=== PATIENT | male | born 1945 | race Caucasian/White ===

== ENCOUNTER 2019-08-01 11:19 | Observation (INO) | payer OTHER, SELFPAY ==
[2019-08-01] VITALS (53 sets, daily range): BP systolic 98–160; BP diastolic 58–94; PULSE 67–100; RESP 12–24; TEMP 35.4–36.7; O2SAT 90–98
--- NOTE | 2019-08-01 11:45 | DI.CT_ITS ---
EXAM: CT BRAIN NECK CTA CLINICAL HISTORY: R sided tongue/hand/foot numbness. TECHNIQUE: Imaging Protocol: Axial CT angiography was performed with multi-slice acquisition and mu lti-planar and/or 3D reconstructions. CONTRAST MATERIAL: Intravenous: Omnipaque 350 Contrast volume:85cc COMPARISON: CT CT HEAD WO from 08/01/2019 FINDINGS: CTA Brain W: Internal Carotid Arteries: Petrous: Normal. Cavernous: Normal. Cerebral: Normal. Middle Cerebral Arteries: Right: No aneurysm, occlusion or significant stenosis. Left: No aneurysm, occlusion or significant stenosis. Anterior Cerebral Arteries: Right: No aneurysm, occlusion or significant stenosis. Left: No aneurysm, occlusion or significant stenosis. Posterior cerebral Arteries: Right: No aneurysm, occlusion or significant stenosis. Left: No aneurysm, occlusion or significant stenosis. Vertebral Arteries: Right: No aneurysm, occlusion or significant stenosis. Left: No aneurysm, occlusion or significant stenosis. Basilar Artery: No aneurysm, occlusion or significant stenosis. CTA Neck W: Common Carotid: Right: Marked tortuosity proximally. No aneurysm, occlusion or significant stenosis. No significant plaque. Left: No aneurysm, occlusion or significant stenosis. External Carotid: Right: No aneurysm, occlusion or significant stenosis. Left: No aneurysm, occlusion or significant stenosis. Internal Carotid: Right: Marked tortuosity in the midportion. No aneurysm, occlusion or significant stenosis. No signi ficant plaque. Left: No aneurysm, occlusion or significant stenosis. Vertebral Artery: Right: No aneurysm, occlusion or significant stenosis. Left: No aneurysm, occlusion or significant stenosis. Lung Apices: Normal. Bones: Severe degenerative disc changes of the cervical spine. Scoliosis at the cervical thoracic ju nction. Soft Tissues: Normal. IMPRESSION: 1. Normal CTA examination of the [place]. 2. Normal CTA examination of the neck. RADIATION DOSE DELIVERED: 317.04mGy.cm Total DLP DATA REPOSITORY: All CT scans at this facility are submitted to the National Radiology Data Registry (NRDR) Dose Index Registry (DIR) with the [employer] (ACR). RADIATION OPTIMIZATION: All CT scans at this facility use at least one of these dose optimization te chniques: automated exposure control; mA and/or kV adjustment per patient size (includes targeted exa ms where dose is matched to clinical indication); or iterative reconstruction.
--- NOTE | 2019-08-01 11:45 | DI.RAD_ITS ---
EXAM: XR CHEST 2V PA LATERAL CLINICAL HISTORY: Possible cva, r/o widenend mediastinum, acute dz TECHNIQUE: 2D digital imaging was performed. COMPARISON: No exams were available for comparison FINDINGS: MEDIASTINUM: Normal. HEART: Normal. PULMONARY VASCULATURE: Normal. LUNGS: Clear. PLEURAL SPACE: No pleural effusion or pneumothorax. BONE:Degenerative changes in the thoracic spine. IMPRESSION: No acute pulmonary findings. DATA REPOSITORY: RADIATION DOSE DELIVERED:
--- NOTE | 2019-08-01 11:55 | W.ED.GENAD ---
Discharge Plan Disposition Patient Disposition: [facility] INPATIENT Condition: Improving Discharge Details Chief Complaint: CVA/TIA Clinical Impression: Left sided lacunar infarction, Acute cerebrovascular accident Admit Date/Time: 08/01/19 16:39 Admit Provider: Mohit Grant Attending Provider: Mohit Grant Primary Care Provider: Shala Ibanez ED Provider: Sidra Phan Discharge Data Discharge Date/Time-TO BE ENTERED AT DEPARTURE: 08/01/19 17:24 Medical Decision Making 1135 -- 74-year-old male with a history of daily alcohol drinker, CLL, hypertension, TIA presents for right-sided tongue, right hand and right toe tingling since 3 AM. BP mildly hypertensive on arrival. Afebrile. He appears nontoxic. No focal deficits on exam. EKG on arrival notes a rate of 94, sinus, PVCs, no acute ST ischemic changes. Differential diagnosis includes a TIA, acute CVA, electrolyte abnormality, arrhythmia. Will check screening labs, refer for stat CT head, CTA head and neck. Patient took a full dose aspirin this morning. Stat CT head and CTA head and neck negative. Labs reviewed and unremarkable. Chest x-ray negative. Patient states his symptoms are still present and the same since onset at 3 AM. Will refer for MRI MRA brain. Case d/w Dr. Carrington who agreed with plan for MRI/MRA brain and starting dual antiplatelet therapy if MRI/MRA positive or negative. Recommends 81 mg aspirin daily, 300 mg Plavix load today and 75 mg Plavix daily. Recommends admission for observation for TIA or CVA. 1530 -- MRI brain notes tiny area of restricted diffusion consistent with a lacunar infarct in the left basal ganglia. Patient states his symptoms are now improving. MRA brain within normal limits. Case discussed with hospitalist who accepts patient for admission. Hospitalist informed that patient is a daily drinker. Patient has not exhibited any signs of withdrawal while in the emergency department. Medical Records Medical records reviewed: Yes I reviewed the patient's medical records. Imaging Data Radiologic Study: Radiologist's impression: CT HEAD WO CLINICAL HISTORY: R tongue/hand/foot numbness, r/o acute cva. TECHNIQUE: Imaging Protocol: Axial computed tomography images with coronal and sagittal reformatted images were created and reviewed COMPARISON: CT HEAD WITHOUT CONTRAST from 11/05/2009 FINDINGS: Ventricles and Extra axial spaces: Normal in size and morphology for the patient's age. Hemorrhage: None. Cerebral parenchyma: Normal. Midline shift: None. Brainstem/Cerebellum: Normal. Calvarium: Normal. Visualized Paranasal sinuses/Mastoids: Clear. Soft Tissues: Unremarkable. IMPRESSION: No acute intracranial process. CT BRAIN NECK CTA CLINICAL HISTORY: R sided tongue/hand/foot numbness. TECHNIQUE: Imaging Protocol: Axial CT angiography was performed with multi-slice acquisition and multi-planar and/or 3D reconstructions. CONTRAST MATERIAL: Intravenous: Omnipaque 350 Contrast volume:85cc COMPARISON: CT CT HEAD WO from 08/01/2019 FINDINGS: CTA Brain W: Internal Carotid Arteries: Petrous: Normal. Cavernous: Normal. Cerebral: Normal. Middle Cerebral Arteries: Right: No aneurysm, occlusion or significant stenosis. Left: No aneurysm, occlusion or significant stenosis. Anterior Cerebral Arteries: Right: No aneurysm, occlusion or significant stenosis. Left: No aneurysm, occlusion or significant stenosis. Posterior cerebral Arteries: Right: No aneurysm, occlusion or significant stenosis. Left: No aneurysm, occlusion or significant stenosis. Vertebral Arteries: Right: No aneurysm, occlusion or significant stenosis. Left: No aneurysm, occlusion or significant stenosis. Basilar Artery: No aneurysm, occlusion or significant stenosis. CTA Neck W: Common Carotid: Right: Marked tortuosity proximally. No aneurysm, occlusion or significant stenosis. No significant plaque. Left: No aneurysm, occlusion or significant stenosis. External Carotid: Right: No aneurysm, occlusion or significant stenosis. Left: No aneurysm, occlusion or significant stenosis. Internal Carotid: Right: Marked tortuosity in the midportion. No aneurysm, occlusion or significant stenosis. No significant plaque. Left: No aneurysm, occlusion or significant stenosis. Vertebral Artery: Right: No aneurysm, occlusion or significant stenosis. Left: No aneurysm, occlusion or significant stenosis. Lung Apices: Normal. Bones: Severe degenerative disc changes of the cervical spine. Scoliosis at the cervical thoracic junction. Soft Tissues: Normal. IMPRESSION: 1. Normal CTA examination of the [place]. 2. Normal CTA examination of the neck. XR CHEST 2V PA LATERAL CLINICAL HISTORY: Possible cva, r/o widenend mediastinum, acute dz TECHNIQUE: 2D digital imaging was performed. COMPARISON: No exams were available for comparison FINDINGS: MEDIASTINUM: Normal. HEART: Normal. PULMONARY VASCULATURE: Normal. LUNGS: Clear. PLEURAL SPACE: No pleural effusion or pneumothorax. BONE:Degenerative changes in the thoracic spine. IMPRESSION: No acute pulmonary findings. MR BRAIN WO CLINICAL HISTORY: R tongue/hand/toe tingling, r/o cva. TECHNIQUE: Multiplanar multisequence MRI of the brain was performed. CONTRAST MATERIAL: Noncontrast COMPARISON: MR MRI - BRAIN WO CONTRAST from 01/29/2010 FINDINGS: VENTRICLES AND EXTRA AXIAL SPACES: Normal in size and morphology for the patient's age. HEMORRHAGE: None. CEREBRAL PARENCHYMA: There is a tiny area restricted diffusion in the left thalamus. No additional foci are seen. No space-occupying lesion identified. MIDLINE SHIFT: None. BRAINSTEM/CEREBELLUM: Normal. CALVARIUM: Normal. The vascular flow voids appear intact. VISUALIZED PARANASAL SINUSES/MASTOIDS: Clear. OTHER FINDINGS: None. IMPRESSION: Tiny area of restricted diffusion consistent with a lacunar infarct in the left basal ganglia. Otherwise unremarkable MRI of the brain. MR ANGIO BRAIN WO CLINICAL HISTORY: R TONGUE/HAND/TOE TINGLING, R/O ACUTE CVA. TECHNIQUE: Multiplanar multisequence MRA of the brain was performed. IV Contrast: Noncontrast. COMPARISON: None. FINDINGS: Carotid Arteries: No aneurysm, occlusion or significant stenosis. Anterior Cerebral Arteries: Right: No aneurysm, occlusion or significant stenosis. Left: No aneurysm, occlusion or significant stenosis. Middle Cerebral Arteries: Right: No aneurysm, occlusion or significant stenosis. Left: No aneurysm, occlusion or significant stenosis. Posterior Cerebral Arteries: Right: No aneurysm, occlusion or significant stenosis. Left: No aneurysm, occlusion or significant stenosis. Vertebral Arteries: Right: No aneurysm, occlusion or significant stenosis. Left: No aneurysm, occlusion or significant stenosis. Basilar Artery: No aneurysm, occlusion or significant stenosis. IMPRESSION: Normal MRA examination of the [place]. Lab Data Lab results reviewed: Yes I reviewed the patient's lab results. ECG Data Attestation: I personally reviewed and interpreted this ECG (s) as follows: Interpretation: Rate of 94, sinus, frequent PVCs. No acute ST elevation or depression. [place] 158. QTc 445. QRS 108. HPI General Mode of arrival: ambulatory. Date/Time Provider Initiated Documentation: 08/01/19 11:27. Limitations to Documentation: no limitations. Information obtained by: patient. HPI Narrative: Patient is a 74-year-old male with a history of hypertension, CLL and TIA presents for right-sided tongue, right hand and right third through fifth toes tingling since 3 AM. Patient states his symptoms have not subsided since onset. He states he thinks he may have blurry vision but is unclear if this is any worse than usual. He denies any headache, dizziness, chest pain, shortness of breath, extremity weakness. He states he had a TIA in 2009. He also states his CLL was diagnosed in 2013 and has been minor and not been treated with anything. He states he took a 325 mg aspirin this morning. Related Data Home Medications Medication Instructions Recorded Confirmed omeprazole magnesium [Prilosec OTC] 20 mg PO DAILY 09/27/13 08/04/19 aspirin 81 mg PO DAILY #0 tab 08/02/19 08/04/19 atorvastatin 20 mg PO QHS #30 tab 08/02/19 08/04/19 clopidogrel [Plavix] 75 mg PO DAILY #30 tab 08/02/19 08/04/19 cephalexin [Keflex] 500 mg PO QID #27 cap 08/04/19 Previous Rx's Medication Instructions Recorded aspirin 81 mg PO DAILY #0 tab 08/02/19 atorvastatin 20 mg PO QHS #30 tab 08/02/19 clopidogrel [Plavix] 75 mg PO DAILY #30 tab 08/02/19 cephalexin [Keflex] 500 mg PO QID #27 cap 08/04/19 Allergies Allergy/AdvReac Type Severity Reaction Status Date / Time No Known Allergies Allergy Unverified 08/04/19 14:31 General Stated Complaint: CVA/TIA ANAM: 2 Review of Systems All systems reviewed & are unremarkable except as noted in HPI and below Constitutional Constitutional: Reports as per HPI, Denies chills and Denies fever(s) Eyes Eyes: Denies blurry vision ENT Ears, Nose, Mouth, and Throat: Denies dizziness, Denies sore throat and Denies throat swelling Cardiovascular Cardiovascular: Denies chest pain and Denies dyspnea Respiratory Respiratory: Denies cough and Denies dyspnea Gastrointestinal Gastrointestinal: Denies abdominal pain, Denies diarrhea and Denies vomiting Genitourinary Genitourinary: Denies hematuria and Denies dysuria Musculoskeletal Musculoskeletal: Denies back pain and Denies numbness Integumentary/Breasts Skin/Breast: Denies lesions and Denies rash Neurologic Neurologic: Denies dizziness, Denies localized weakness and Denies numbness Allergic/Immunologic Allergic/Immunologic: Denies throat swelling [facility] Medical History CLL (chronic lymphocytic leukemia) (Acute) GERD (gastroesophageal reflux disease) (Chronic) Gout HTN (hypertension) (Chronic) Migraine headache with aura (Acute) Ocular migraine (Acute) TIA (transient ischemic attack) Surgical History History of nasal surgery (Acute) Tonsillectomy Family History Maternal Grandmother Stroke Social History Smoking/Tobacco Use Status: Never Alcohol Intake: current Alcohol Intake frequency: 0-2 drinks per day Alcohol type: beer Drug use: Never Household members: none Do you feel safe at home: Yes Do you feel safe in your relationship?: Yes Exam Const General: cooperative, healthy appearing and no acute distress HENMA Head: normal to inspection Face and sinus: normal facial exam Eyes General: appearance normal, both eyes and all related structures Pupils: PERRL EOM: EOM intact bilaterally Neck Neck: normal visual inspection and No submandibular swelling Lymphatic: no lymphadenopathy noted Chest Chest: normal inspection of the chest and no tenderness Resp Effort & Inspection: normal respiratory effort and able to speak in complete sentences Auscultation: clear to auscultation bilaterally Cardio Rate: regular rate Rhythm: regular rhythm GI Inspection: normal to inspection Palpation: soft, not firm, not rigid and nontender Auscultation: normal bowel sounds Male General Exam: Yes normal external exam Back/Spine/Pelvis Thoracic/Lumbar Spine: thoracic and lumbar spine normal to inspection Skin General skin exam: no rashes or lesions noted Neuro General: patient alert, patient awake, patient oriented x3 and CN's II-XI intact bilaterally Cognition: normal cognition Speech: speech normal Motor: muscle tone normal throughout and strength 5/5 throughout Sensory Exam: no sensory deficits noted Extrem General: normal to inspection, full ROM, capillary refill normal, no calf tenderness bilaterally and no edema Psych Appearance: grossly normal Mental Status: mental status grossly normal Speech and Movement: speech and movement normal Affect: normal affect Course Vital Signs Vital signs: Vital Signs Temperature 98.1 F 08/01/19 11:24 Pulse 100 H 08/01/19 11:24 Respiratory Rate 16 08/01/19 11:24 Blood Pressure 158/89 H 08/01/19 11:24 Pulse Oximetry 94 L 08/01/19 11:24 Temperature 98.1 F 08/01/19 11:24 Temperature Source Skin 08/01/19 11:24 Pulse 100 H 08/01/19 11:24 Respiratory Rate 16 08/01/19 11:29 Respiratory Effort Non-Labored 08/01/19 11:29 Respiratory Depth Normal 08/01/19 11:29 Respiratory Pattern Normal 08/01/19 11:29 Blood Pressure 158/89 H 08/01/19 11:24 Blood Pressure Position Sitting 08/01/19 11:24 Pulse Oximetry 94 L 08/01/19 11:24 Oxygen Delivery Method Room Air 08/01/19 11:24 Oxygen Flow Rate 0 08/01/19 11:24 Pain Level 0 08/01/19 11:24
--- NOTE | 2019-08-01 12:00 | DI.CT_ITS ---
EXAM: CT HEAD WO CLINICAL HISTORY: R tongue/hand/foot numbness, r/o acute cva. TECHNIQUE: Imaging Protocol: Axial computed tomography images with coronal and sagittal reformatted images were created and reviewed COMPARISON: CT HEAD WITHOUT CONTRAST from 11/05/2009 FINDINGS: Ventricles and Extra axial spaces: Normal in size and morphology for the patient's age. Hemorrhage: None. Cerebral parenchyma: Normal. Midline shift: None. Brainstem/Cerebellum: Normal. Calvarium: Normal. Visualized Paranasal sinuses/Mastoids: Clear. Soft Tissues: Unremarkable. IMPRESSION: No acute intracranial process. RADIATION DOSE DELIVERED: 810.85mGy.cm Total DLP DATA REPOSITORY: All CT scans at this facility are submitted to the National Radiology Data Registry (NRDR) Dose Index Registry (DIR) with the [employer] [employer] (ACR). RADIATION OPTIMIZATION: All CT scans at this facility use at least one of these dose optimization te chniques: automated exposure control; mA and/or kV adjustment per patient size (includes targeted exa ms where dose is matched to clinical indication); or iterative reconstruction.
[2019-08-01 12:07] LABS: Abs Immature Grans 0.01 k/cumm (0.0-0.09); Absolute Basophil Count 0.01 k/cumm (0.0-0.2); Absolute Eosinophil Count 0.18 k/cumm (0.0-0.7); Absolute Lymphocyte Count 4.39 k/cumm (1.2-3.4); Absolute Monocyte Count 0.53 k/cumm (0.11-0.7); Absolute Neutrophil Count 2.12 k/cumm (1.2-6.7); Basophils % 0.1; Eosinophils % 2.5; HCT 45.4 % (40.0-50.0); HGB 16.1 g/dL (13.5-17.5); Immature Grans % 0.1 %; Lymphocytes % 60.6; Mean Corp. HGB Concentration 35.5 g/dL (32.0-36.0); Mean Corpuscular Hemoglobin 33.2 pg (27.0-33.0); Mean Corpuscular Volume 93.6 fL (80-95); Mean Platelet Volume 10.6 fL (8.0-11.0); Monocytes % 7.3; Neutrophils % 29.4; Platelet Count 244 x1000/uL (130-400); RBC 4.85 m/cumm (4.50-6.00); RBC Distribution Width 13.3 % (11.8-14.1); White Blood Cell Count 7.24 k/cumm (4.4-10.8)
[2019-08-01 12:21] LABS: ALT 15 U/L (16-63); AST 26 U/L (15-37); Albumin 3.9 g/dL (3.4-5.0); Alkaline Phosphatase 65 U/L (46-116); Anion Gap 11.5 mmol/L (3-11); BUN 17 mg/dL (7-18); Bilirubin, Total 0.6 mg/dL (0.2-1.0); CO2 24.5 mmol/L (21.0-32.0); CREATININE 1.15 mg/dL (0.70-1.30); Chloride 104 mmol/L (98-107); Glucose 108 mg/dL (74-106); Magnesium 1.8 mg/dL (1.8-2.4); Potassium 3.8 mmol/L (3.5-5.1); Sodium 140 mmol/L (136-145); Total Protein 6.9 g/dL (6.4-8.2)
[2019-08-01 12:22] LABS: Troponin I < 0.05 ng/mL (<0.06)
[2019-08-01 12:24] LABS: INR 1.1 (0.9-1.1); PTT Activated 24.1 sec (21.0-31.4)
[2019-08-01] MEDS: Omnipaque 350 MG/ML 100 ML BTL IJ (12:43)
[2019-08-01] MEDS: Normal Saline - Diluent 50 ML VIAL IV (12:45)
--- NOTE | 2019-08-01 14:00 | DI.MRI_ITS ---
EXAM: MR BRAIN WO CLINICAL HISTORY: R tongue/hand/toe tingling, r/o cva. TECHNIQUE: Multiplanar multisequence MRI of the brain was performed. CONTRAST MATERIAL: Noncontrast COMPARISON: MR MRI - BRAIN WO CONTRAST from 01/29/2010 FINDINGS: VENTRICLES AND EXTRA AXIAL SPACES: Normal in size and morphology for the patient's age. HEMORRHAGE: None. CEREBRAL PARENCHYMA: There is a tiny area restricted diffusion in the left thalamus. No additional f oci are seen. No space-occupying lesion identified. MIDLINE SHIFT: None. BRAINSTEM/CEREBELLUM: Normal. CALVARIUM: Normal. The vascular flow voids appear intact. VISUALIZED PARANASAL SINUSES/MASTOIDS: Clear. OTHER FINDINGS: None. IMPRESSION: Tiny area of restricted diffusion consistent with a lacunar infarct in the left basal ganglia. Other rodriguez unremarkable MRI of the brain. DATA REPOSITORY:
--- NOTE | 2019-08-01 14:00 | DI.MRI_ITS ---
EXAM: MR ANGIO BRAIN WO CLINICAL HISTORY: R TONGUE/HAND/TOE TINGLING, R/O ACUTE CVA. TECHNIQUE: Multiplanar multisequence MRA of the brain was performed. IV Contrast: Noncontrast. COMPARISON: None. FINDINGS: Carotid Arteries: No aneurysm, occlusion or significant stenosis. Anterior Cerebral Arteries: Right: No aneurysm, occlusion or significant stenosis. Left: No aneurysm, occlusion or significant stenosis. Middle Cerebral Arteries: Right: No aneurysm, occlusion or significant stenosis. Left: No aneurysm, occlusion or significant stenosis. Posterior Cerebral Arteries: Right: No aneurysm, occlusion or significant stenosis. Left: No aneurysm, occlusion or significant stenosis. Vertebral Arteries: Right: No aneurysm, occlusion or significant stenosis. Left: No aneurysm, occlusion or significant stenosis. Basilar Artery: No aneurysm, occlusion or significant stenosis. IMPRESSION: Normal MRA examination of the [place]. DATA REPOSITORY:
[2019-08-01] MEDS: LORazepam 1 MG TAB PO (14:22)
[2019-08-01] MEDS: LORazepam 2 MG/ML VIAL 0.5 MG IVP ×2 (14:55)
[2019-08-01] MEDS: Clopidogrel 300 MG TAB PO (16:12)
--- NOTE | 2019-08-01 17:57 | W.PM.HP.N ---
Date of service: 08/01/19 Time of Service: 17:57 Assessment and Plan Assessment and plan (1) Left sided lacunar infarction: Status: Acute Assessment and plan: Begin high-dose statin continue dual antiplatelet therapy. Will obtain transthoracic echocardiogram in the morning to evaluate for atrial thrombus or valvular heart disease or evidence of cardiomyopathy. Consult with neurology in the morning. Consult with physical therapy and speech therapy in the morning. Will monitor overnight on telemetry and arrange outpatient prolonged cardiac monitoring to look for occult atrial fibrillation. Will check a lipid profile and glycohemoglobin A1c and thyroid function tests in the morning. If he has no worsening of his neurologic symptoms then the plan will be to discharge home in the morning. For now would not treat his blood pressure but let this right overnight in the acute setting of a recent CVA however given his history of labile blood pressures the goal for him should be to achieve normotensive pressures over the next couple weeks. (2) Elevated blood pressure reading: Status: Acute Assessment and plan: As above will allow his blood pressure to passively remain elevated as long as his systolic blood pressure remains under 200 and diastolic remains below 110. Otherwise he can start low-dose antihypertensive treatment as an outpatient with a goal of systolic blood pressure less than 140 and diastolic blood pressure under 90 (3) HTN (hypertension): Status: Chronic Assessment and plan: As above Qualifiers: Hypertension type: essential hypertension Qualified Code(s): I10 - Essential (primary) hypertension History of Present Illness History of Present Illness Chief Complaint: Right-sided numbness Narrative: .74-year-old right-handed male non-smoker with a past medical history of GERD for which she takes omeprazole presented emergency department at 11:24 AM today with complaints of acute right hand and right foot tingling along with tingling on the right side of his tongue. Onset of his symptoms began around 3 AM when he noticed this while staying up late at night working on his computer and when to close up his computer and noticed that his right hand felt odd, tingling and he was a little bit clumsy with his right hand. He also noticed when he got up from his desk walking that his right foot felt tingling and there was some tingling on the right side of his tongue. Patient proceeded to go to bed and woke up around 10 AM this morning and had residual symptoms of right tongue numbness and right hand numbness although he said the right foot had improved. He denies any acute visual loss or difficulty swallowing and did not notice any difficulty ambulating. He had no loss of balance and denies any chest pain or syncope. He states that he may have had some palpitations this morning but associates this due to anxiety over possibly having a stroke. When he woke up and continued to have the symptoms he took an aspirin 325 mg and proceeded to dress and shower and come to the emergency department. Patient denies a past history of diabetes mellitus, stroke, [place], arrhythmias, hyperlipidemia but does acknowledge she has had some labile blood pressures in the past particularly noted when he seen the dentist. He is not currently on any blood pressure lowering medications. He does have a history of GERD for which she takes omeprazole. He has not recently followed up with his PCP as his doctor at [facility] recently retired. After reviewing his chart I saw that he has a history of a TIA. I asked the patient the circumstances that sounds like they were very similar in which she had right hand numbness and tingling which was transient and lasted less than an hour. This occurred in October 2018. He subsequent had another episode in November 2017. He said he underwent a series of test to work-up for stroke and was advised to stay on a aspirin 81 mg daily. He continued on this dose of aspirin for a number of years until he read reports that even low-dose aspirin can lead to GI bleeding and he took himself off aspirin. Work-up in the emergency department included routine labs and EKG as well as a CT scan of his head and a subsequent CTA of his head and neck and subsequent MRI of the brain and MRA. CT scan of the head without contrast was unremarkable. CTA of the head and cervical vessels showed patent [place] and patent cervical vessels with no significant stenoses and no aneurysm. MRA of the brain showed patent [place]. MRI of the brain showed a small diffusion defect in the left thalamus. Dr. Sidra Phan, emergency room physician, spoke with Dr. Roxi Carrington, neurologist who advised dual anti-platelet with aspirin and Plavix. Patient was started on Plavix 300 mg and will be continued on Plavix 75 mg daily and aspirin 81 mg daily. High-dose statin will be added to his regimen. We will monitor his rhythm overnight looking for any paroxysmal atrial fibrillation. Upon discharge from the hospital he will have a cardiac event recorder to look for any atrial dysrhythmias. I will get a glycohemoglobin A1c and lipid profile in the morning along with a TSH with reflex free T4. We will consult with Dr. Carrington in the morning as well as physical therapy and speech therapy. Review of Systems Constitutional Constitutional: Reports as per HPI, Denies chills, Denies fever(s), Denies frequent falls and Denies headache(s) Eyes Eyes: Denies blurry vision, Denies change in vision, Denies diplopia and Denies loss of peripheral vision ENT Ears, Nose, Mouth, and Throat: Reports as per HPI, Denies headache(s) and Denies disequilibrium Cardiovascular Cardiovascular: Denies chest pain, Denies syncope, Denies rapid heart rate, Denies irregular heart rhythm, Denies dyspnea and Denies dyspnea on exertion Respiratory Respiratory: Reports system reviewed and no additional complaints, except as documented, Denies dyspnea and Denies dyspnea on exertion Gastrointestinal Gastrointestinal: Reports system reviewed and no additional complaints, except as documented Musculoskeletal Musculoskeletal: Reports system reviewed and no additional complaints, except as documented and Reports numbness Neurologic Neurologic: Reports as per HPI, Denies abnormal movements, Denies abnormal speech, Denies syncope, Denies frequent falls, Denies headache(s), Denies lack of coordination, Denies localized weakness, Reports numbness, Denies other visual disturbances, Reports paresthesias and Denies disequilibrium Endocrine Endocrine: Reports system reviewed and no additional complaints, except as documented Hematologic/Lymphatic Hematologic/Lymphatic: Reports system reviewed and no additional complaints, except as documented Allergic/Immunologic Allergic/Immunologic: Reports system reviewed and no additional complaints, except as documented [facility] Medical History (Updated 08/01/19 @ 19:10 by Mohit Grant) CLL (chronic lymphocytic leukemia) (Acute) Gout HTN (hypertension) (Chronic) TIA (transient ischemic attack) Surgical History (Updated 08/01/19 @ 18:57 by Mohit Grant) History of nasal surgery (Acute) Tonsillectomy Social History Smoking/Tobacco Use Status: Never Drug use: Never Meds Home Medications and Allergies Home Medications Medication Instructions Recorded Confirmed Type omeprazole magnesium [Prilosec OTC] 20 mg PO DAILY 09/27/13 08/01/19 History Allergies Allergy/AdvReac Type Severity Reaction Status Date / Time No Known Allergies Allergy Unverified 08/01/19 11:28 Exam Narrative Exam Narrative: Older male lying in bed in semi-ivy position no acute distress. He is alert and oriented person place time circumstance. Speech is clear and coherent no dysarthric speech. HEENT is remarkable for slight loss of tone in the right nasolabial fold but otherwise fairly symmetrical smile. Extraocular motions intact. Gross visual hill intact. Oropharynx noninjected no exudate normal tongue movement. Normal palate movement. Normal phonation. Neck is supple nontender no JVD normal carotid pulses no bruits. Lungs are clear to auscultation. Heart regular rate and rhythm without murmur rub or gallop. Abdomen soft and nontender normal active bowel sounds no palpable masses or bruits. Lower extremities without peripheral cyanosis or edema. Neurologic exam: Slight loss of right nasolabial fold tone but otherwise symmetrical facial mimetic muscle movement. Flextra motions intact. Normal strength in the muscles of his neck and shoulders. Normal hand corporate travel coordinator strength normal arm strength and normal hip flexion extension as well as normal dorsiflexion and plantar flexion at the ankles. Sensation slight decreased to light touch over the right hand normal sensation of the right forearm and upper arm and right leg. Results Labs Result diagrams: 08/01/19 11:36 08/01/19 11:36 Labs: Laboratory Results - last 24 hr 08/01/19 08/01/19 08/01/19 11:36 11:36 11:36 WBC 7.24 RBC 4.85 Hgb 16.1 Hct 45.4 MCV 93.6 MCH 33.2 H MCHC 35.5 RDW 13.3 Plt Count 244 MPV 10.6 Immature Gran % 0.1 Neutrophils % 29.4 Lymphocytes % 60.6 Monocytes % 7.3 Eosinophils % 2.5 Basophils % 0.1 Absolute Neutrophils 2.12 Absolute Lymphocytes 4.39 H Absolute Monocytes 0.53 Absolute Eosinophils 0.18 Absolute Basophils 0.01 PT 11.0 INR 1.1 APTT 24.1 Sodium 140 Potassium 3.8 Chloride 104 Carbon Dioxide 24.5 Anion Gap 11.5 H BUN 17 Creatinine 1.15 Estimated GFR/1.73 m2 >= 60.00 Glucose 108 H Calcium 9.0 Magnesium 1.8 Total Bilirubin 0.6 AST 26 ALT 15 L Alkaline Phosphatase 65 Troponin I < 0.05 Total Protein 6.9 Albumin 3.9 Last Vital Signs Temp 36.7 C 06/17/20 17:41 Pulse 78 08/01/19 17:41 Resp 20 08/01/19 17:41 BP 160/83 H 08/01/19 17:41 Pulse Ox 98 08/01/19 17:41 COVID-19 Screening In the past 14 days, have you traveled outside of [place] or [place]?: NO Had IN PERSON contact w/suspected or confirmed C-19 person: No
[2019-08-01] MEDS: Folic Acid 1 MG TAB PO (20:38)
[2019-08-01] MEDS: Multivitamin TAB 1 TAB PO (20:38)
[2019-08-01] MEDS: Enoxaparin 40 MG/0.4 ML SYR SC (20:38)
[2019-08-01] MEDS: Thiamine 100 MG TAB PO (20:38)
[2019-08-01] MEDS: Atorvastatin 40 MG TAB 80 MG PO (20:39)
[2019-08-02 00:37] VITALS: BP 125/72; PULSE 68; RESP 18; TEMP 36.9; O2SAT 95
[2019-08-02 02:30] VITALS: BP 125/70; PULSE 69; RESP 18; TEMP 36.7; O2SAT 96
[2019-08-02 06:38] VITALS: BP 154/81; PULSE 62; RESP 17; TEMP 36.6; O2SAT 96
[2019-08-02 06:40] LABS: COVID-19 RT-PCR UVMMC Result Negative (Negative)
[2019-08-02 06:53] LABS: Hemoglobin A1C 5.6 % (3.8-5.6)
[2019-08-02 06:56] LABS: Glucose 110 mg/dL (74-106)
--- NOTE | 2019-08-02 07:00 | DI.US_ITS ---
APPROVED REPORT EXAM: Comprehensive 2D, Doppler, and color-flow Echocardiogram Patient Location: In-Patient Room/Bed: [facility] Teacher: Laney Ware RDCS (AE) Indications: CVA Other Information Study Quality: Adequate Conclusion Left Ventricle : The left ventricle is normal size. There is normal left ventricular wall thickness. There is normal LV segmental wall motion. Transmitral Doppler flow pattern suggests impaired LV relax ation. LVEF is 49%. The left ventricular systolic function is low normal. Right Ventricle : Right ventricle is not well visualized. Right ventricular systolic function could n ot be assessed. The RVSP is 25.3 mmHg. Atria : The left atrium size is normal. The right atrium size is normal. Valves, there are no hemodynamically significant valvular lesions. Great Vessels : The aortic root is normal in size. The ascending aorta is mildly dilated. IVC is norm al in size and collapses >50% with inspiration. Please see remainder of study for further details. There are no echocardiographic images available for comparison. Wall motion Left Ventricle The left ventricle is normal size. The left ventricular systolic function is low normal. There is nor mal left ventricular wall thickness. There is normal LV segmental wall motion. Transmitral Doppler fl ow pattern suggests impaired LV relaxation. There is no ventricular septal defect visualized. LVEF is 49%. Right Ventricle Right ventricle is not well visualized. Right ventricular systolic function could not be assessed. Th e RVSP is 25.3 mmHg. Atria The left atrium size is normal. The right atrium size is normal. The interatrial septum is intact wit h no evidence for an atrial septal defect. Aortic Valve The Aortic valve is sclerotic. Aortic valve is trileaflet. There is no aortic valvular stenosis. Trac e aortic regurgitation. Mitral Valve Mild mitral annular calcification. No evidence of mitral valve stenosis. Trace mitral regurgitation. Tricuspid Valve The tricuspid valve is normal in structure. There is no tricuspid valve stenosis. Trace tricuspid reg urgitation. Pulmonic Valve The pulmonary valve is normal in structure. There is no pulmonic valvular stenosis. Mild pulmonic reg urgitation. Great Vessels The aortic root is normal in size. The ascending aorta is mildly dilated. IVC is normal in size and c ollapses >50% with inspiration. Pericardium There is no pericardial effusion. 2D Dimensions IVSD d PLAX 1.13 cm M: 0.6-1.2 LV Vol A2C d MOD 107.8 mL LVPW d PLAX 1.12 cm M: 0.6 - 1.2 LV Vol A4C d MOD 119.5 mL LVID d PLAX 4.60 cm M: 4.2 - 5.8 LA vol/ BSA A2C s A-L 22.2 mL/m2 LVDs 3.40 cm M: 2.5 - 4.0 LA vol/ BSA A4C s A-L 29.1 mL/m2 Ao Root d 3.45 cm M: 3.1 - 3.7 LA Vol/ BSA Biplane s A-L 26.7 mL/m2 RA Area A4C 13.39 cm2 LA Area A4C s MOD 20.21 cm2 RA Vol/ BSA A4C s A-L 16.4 mL/m2 LA Area A2C s MOD 16.80 cm2 Ao Asc Diam d 3.60 cm M: 2.6 - 3.4 LV EF A4C MOD 49.2 % LV EF Teichholz 50.8 % LV EF A2C MOD 49.7 % LVEF (Major's) 49.42 % M: 52 - 72 LV EF Biplane MOD 49.4 % LV Volume 86.76 mL M: 62 - 150 SV 57.80 mL LV Volume Index 42.11 mL/m2 M: 34 - 74 SV Index 27.95 mL/m2 LV Vol Biplane MOD 117.0 mL FS 25.80 % M-Mode TAPSE 2.21 cm (M/F) >1.7 LV Diastology MV E' medial 0.069 (>0.07 m/s) MV E Vmax 0.29 (0.4-1.3 m/s) LV E/e MED 4.10 (<14) MV E' lateral 0.079 (>0.1 m/s) LV E/e LAT 3.60 (<14) MV E/E' medial 4.14 MV E/E' lateral 3.63 Aortic Valve LVOT Area 3.51 cm2 AoV Area Vmax 2.64 cm2 LVOT Vmax 1.11 m/s AoV Area/ BSA (Vmax) 1.28 cm2/m2 LVOT Mean Dillon. 0.72 m/s AMANDA Mean Dillon. 2.59 cm2 LVOT Peak Grad 4.9 mmHg AMANDA Mean Dillon. Index 1.25 cm2/m2 LVOT Mean Grad 2.4 mmHg LVOT VTI 0.211 m LVOT Diam s 2.10 cm AoV Vmax 1.47 m/s Velocity Ratio 0.75 AoV Mean Dillon. 0.98 m/s AoV Peak Grad 8.7 mmHg LVOT SV 74.09 mL AoV Mean Grad 4.4 mmHg AoV VTI 0.223 m AoV Area VTI 3.32 cm2 AoV Area/ BSA (VTI) 1.61 cm/m2 Mitral Valve MV VTI 0.140 m MV Area VTI 5.29 (4.0-6.0 cm2) Pulmonary Valve PV Vmax 1.37 (0.5-1.5 m/s) RVOT Peak Gr. 1.62 mmHg PV Peak Grad 7.5 mmHg RVOT Mean Gr. 0.85 mmHg PV Mean Grad 3.3 mmHg RVOT VTI 0.120 m PV VTI 0.206 m RVOT Vmax 0.64 m/s Tricuspid Valve TR Peak Grad 22.2 mmHg TR Vmax 2.36 m/s RA Pressure 3.00 mmHg RVSP (TR) 25.3 mmHg
[2019-08-02 07:10] LABS: Calculated LDL 96 mg/dL (<100); Cholesterol 167 mg/dL (<200); HDL Cholesterol 44 mg/dL (40-60); TSH (W/Ref FT4) 2.13 uIU/mL (0.36-3.74); Triglyceride 139 mg/dL (<150)
[2019-08-02 07:15] VITALS: BP 132/84; PULSE 70; RESP 14; TEMP 36.3; O2SAT 98
[2019-08-02 08:29] LABS: *AMPHETAMINES SCREEN URINE Negative (Negative); *BARBITURATES SCREEN URINE Negative (Negative); *BENZODIAZEPINES SCREEN URINE Negative (Negative); Cannabinoids THC Negative (Negative); Cocaine Screen,Urine Negative (Negative); METHADONE URINE SCREEN Negative (Negative); OPIATES URINE SCREEN Negative (Negative)
[2019-08-02 08:33] LABS: Tricyclic Antidepressants Negative (Negative)
[2019-08-02] MEDS: Aspirin E.C. 81 MG TABEC PO (10:13)
[2019-08-02] MEDS: Docusate Sodium 100 MG CAP PO (10:13)
[2019-08-02] MEDS: Omeprazole 20 MG CAPCR PO (10:13)
[2019-08-02] MEDS: Folic Acid 1 MG TAB PO (10:14)
[2019-08-02] MEDS: Multivitamin TAB 1 TAB PO (10:14)
[2019-08-02] MEDS: Clopidogrel 75 MG TAB PO (10:14)
[2019-08-02] MEDS: Thiamine 100 MG TAB PO (10:14)
--- NOTE | 2019-08-02 10:27 | PDOC.CMIN ---
- If Service Date Differs Date of service: 08/02/19 Time of Service: 16:36 Care Management Initial Assess REASON FOR HOSPITALIZATION:: Acute Lacunar Infarct PAST MEDICAL HISTORY/PAST SURGICAL HISTORY:: CLL, Gout, HTN, TIA, Hx of nasal surgery, tonsillectomy PREVIOUS FUNCTIONAL STATUS/SOCIAL/FAMILY SUPPORTS:: Misha resides in [facility], he is single and is employed at [employer]. He is independent at baseline in the community. ADVANCE DIRECTIVES:: None on file at [facility]. Has patient been provided with info about the portal/API?: Yes Did the patient sign up for the portal?: Yes (Previously) CODE STATUS:: Full Code INSURANCE COVERAGE / FINANCIAL ISSUES:: [facility] CURRENT HOME/COMMUNITY SERVICES/EQUIPMENT:: No current services or equipment. PRIMARY CARE PHYSICIAN:: Shala Ibanez POTENTIAL DISCHARGE NEEDS:: alarm security or surveillance monitor, neurology consult, Echo, new medications, follow up appointments with PCP. PATIENT/FAMILY EDUCATION NEEDS:: Review discharge instructions, discuss Ask Me Three. ANTICIPATED BARRIERS TO DISCHARGE:: None identified at this time. TRANSPORTATION:: Via private vehicle with a friend. PLAN:: Misha will return home when ready per MD; likely today-pending neurology consult and additional imaging. He will have a new alarm security or surveillance monitor, anti-coagulant medications and follow up appointments.
[2019-08-02 10:30] VITALS: BP 167/99; PULSE 71; RESP 13; TEMP 36.7; O2SAT 98
--- NOTE | 2019-08-02 11:00 | W.SPEECHNOTE ---
Date of service: 08/02/19 Time of Service: 11:00 Speech Therapy Visit Note Note: Swallow screen conducted with pt today. He denies any change in swallowing since admission for CVA. Pt was able to communicate clearly and effectively. Pt was alert, oriented, able to answer questions and provide historical information appropriately. He noted minor changes to his speech when first noting symptoms, suspected to be due to lingual numbness, which has reportedly resolved. Pt has managed a regular diet during his stay and reports no difficulty with solid textures or liquids, including eating/drinking sandwiches, muffins, oatmeal, water, juice, etc. Lingual strength and ROM was informally assessed today, all of which appeared WFL. Oral hygiene was adequate. Pt was observed while taking open cups sips, straw sips, and consecutive sips of water. He also managed crackers. No overt s/s of aspiration present. Pt exhibited functional mastication. No pocketing seen. Pt exhibited a shallow throat clear on occasion, however, this is not suspected to be related to his swallowing as there were no other accompanying symptoms of aspiration. Pt has hx of GERD and is taking medications to manage. He reports not taking daily, reducing to approximately every other day and then as needed if eating spicy foods. Pt denies pharyngeal and esophageal globus sensation. Pt reports having no difficulty taking his medications, managing well while here at the hospital. Pt was educated regarding communicating with his medical providers if further concerns or difficulties arise, for which an outpatient assessment could be considered.
--- NOTE | 2019-08-02 11:42 | PT.INIE ---
Date of service: 08/02/19 Time of Service: 11:42 PT Notes Visit Reasons: ACUTE LACUNAR INFARCT Physical Therapy Inpatient Initial Evaluation Date: 08/02/2019 Referring Doctor: Mohit Michael MD PT Orders: PT CONSULT: Safety consult for DC. Status post left basal ganglia CVA Precautions: Fall. Standard. Activity as tolerated. Patient Profile/Admitting Diagnosis: Misha is a 74-year-old male who presented to the ED on 08/03/2019 with a chief complaint of right-sided tongue, hand, and chill tingling and numbness that started at 3 AM earlier today. Patient is diagnosed with left-sided Lackner infarction as well as hypertension with referral for skilled physical therapy services for safety recommendations for discharge planning. PMHX: Medical History CLL (chronic lymphocytic leukemia) (Acute) GERD (gastroesophageal reflux disease) (Chronic) Gout HTN (hypertension) (Chronic) Migraine headache with aura (Acute) Ocular migraine (Acute) TIA (transient ischemic attack) Surgical History History of nasal surgery (Acute) Tonsillectomy Social History/Home Situation: Independent with all aspects of ADLs without the need for an assistive ambulatory device nor adaptive equipment. Equipment Owned/DME: None Subjective: Patient states that the tingling and the numbness is now concentrated on the palmar and the dorsal aspect of his hand and the dorsum of his foot on the right side. He states that he feels a lot better compared to when he first came in. Denies chest pain, headache, and dizziness throughout PT consult. Objective: General Observation: No lines seen. No facial droop seen. No postural deformity seen Mental Status: Alert and oriented x4 Pain: None reported ROM: Right Upper Extremity: Shoulder Flexion WFL. Shoulder abduction WFL. Elbow flexion WFL. Wrist flexion WFL. Opening and closing of hand WFL. Left Upper Extremity: Shoulder Flexion WFL. Shoulder abduction WFL. Elbow flexion WFL. Wrist flexion WFL. Opening and closing of hand WFL. Right Lower Extremity: Hip flexion WFL. Hip abduction WFL. Knee flexion WFL. Ankle dorsiflexion WFL. Ankle plantarflexion WFL. Left Lower Extremity: Hip flexion WFL. Hip abduction WFL. Knee flexion WFL. Ankle dorsiflexion WFL. Ankle plantarflexion WFL. Strength: Right Upper Extremity: Shoulder flexors 5/5. Shoulder abductors 5/5. Elbow flexors 5/5. Elbow extensors 5/5. Metal Window Frame Maker strong. Left Upper Extremity: Shoulder flexors 5/5. Shoulder abductors 5/5. Elbow flexors 5/5. Elbow extensors 5/5. Metal Window Frame Maker strong. Right Lower Extremity: Hip flexors 5/5. Hip abductors 5/5. Knee flexors 5/5. Knee extensors 5/5. Ankle dorsiflexors 5/5. Ankle plantarflexors 5/5. Left Lower Extremity:Hip flexors 5/5. Hip abductors 5/5. Knee flexors 5/5. Knee extensors 5/5. Ankle dorsiflexors 5/5. Ankle plantarflexors 5/5. Sensation: Numbness reported on the palmar and dorsal asked hand and the dorsum of the right foot Bed Mobility/Transfers: Rolling independent Supine to sit independent Sit to supine independent Sit to stand independent Stand to sit independent Bed to chair independent Chair to bed independent Gait: Patient tolerated level surface ambulation of 260 feet independently without an assistive device . No SOB. No LOB. Gait pattern unremarkable. Balance: Static Sitting: Normal Dynamic Sitting: Normal Static Standing: Normal Dynamic Standing: Good Special Tests: Mobility Limitations Standardized Measure [facility] 6 clicks Basic Mobility Inpatient Short Form: Raw Score: 24 CMS Score: 0% deficit Informed Consent/Education: Patient instructed in purpose of PT consult and plan of care. Assessment: Misha does not present any range of motion, strength, and balance deficit at time of physical therapy evaluation. Patient is assessed as a 21742 low complexity based on the following: History: 74-year-old male with impairment level findings, functional limitations, and past medical history as indicated above Examination: No demonstrable impairment in strength, balance, and mobility level with underlying impairments and functional limitations as documented above Presentation: Stable Decision Makin complexity Goals: N/A. PT consult only. No skilled services needed at this time Plan of Care/Treatment Plan: N/A. PT consult only. No skilled services needed at this time DISCHARGE RECOMMENDATIONS: Home when medically cleared by . No equipment needs at this time. TREATMENT CODE/TIME: 61603 x 18 minutes beginning at 11:42 AM. Thank you very much for this referral. Chanell Joiner PT, DPT, CLT [facility] [place], [place]
--- NOTE | 2019-08-02 11:44 | W.NEUROCONSU ---
Date of service: 08/02/19 Time of Service: 11:45 Assessment and Plan Assessment and plan (1) Acute cerebrovascular accident: Status: Acute (2) Left sided lacunar infarction: Status: Acute Assessment and plan: Mr. Goel is a 74 year-old, right-handed man with a history of hypertension, migraine headaches with/without aura, remote hemiplegic migraines, ocular migraines, and remote TIA who was admitted for acute ischemic stroke in the left thalamus manifested by right tongue, hand, and foot numbness likely due to small vessel disease, however, cardioembolus has not been ruled out. I was able to review his imaging with him and we discussed diagnosis, work-up, prognosis/recovery, and prevention. I recommend further work-up with 30 day extended cardiac monitoring. He should continue Plavix 75mg daily + aspirin 81mg daily for 1 month, at which time he can stop Plavix and continue aspirin 81mg daily for secondary stroke prevention. We discussed the roles of statins. Given excellent LDL, I recommend he be discharged on atorvastatin 10mg daily. ADRs were discussed. He does not need PT/OT. He should follow-up in the neurology clinic in 6-8 weeks. Please call with any further questions or concerns. History of Present Illness History of Present Illness Chief Complaint: stroke Narrative: Handedness: right. HPI: Mr. Goel is a 74 year-old man with a PMH of hypertension (not on medications), GERD, CLL (dx in 2013, no tx, stable/mild), and prior remote TIA in 2009 manifested by transient right hand weakness for which he was on ASA 81mg daily for many years before self-weaning. He also has a remote history of migraine headaches w/wo aura along with hemiplegic migraines. In recent years, he has had rare headaches but now has ocular migraines associated with GI upset. He has not had any routine primary care in several years. He presented to the ED yesterday am. While working late on his computer, he noted right tongue, hand, and foot numbness and tingling, acute onset. He went to bed soon after and upon waking at 10am with persistent symptoms, then presented to the ER. His BP was elevated ~150s/80s. EKG was unremarkable. He was given Plavix 300mg (he had already taken 325mg ASA at home) and has been continued on Plavix 75mg daily, ASA 81mg daily, and started on atorvastatin 80mg daily. He underwent the testing below. Work-up: -CTH: unremarkable. I reviewed these images personally. -MRI brain: small left thalamic acute lacunar infarct. Minimal chronic small vessel disease changes. I reviewed these images personally. -MRA head: absent R A1 segment (normal variant). I reviewed these images personally. -CTA head/neck: unremarkable. I reviewed these images personally. -TTE: EF 49%, no wall motion abnormalities; LA normal -Tele: SR -LDL 96 -A1c 5.6 Consults Requesting physician: Mohit Grant Review of Systems All systems reviewed & are unremarkable except as noted in HPI and below PFSH Medical History CLL (chronic lymphocytic leukemia) (Acute) GERD (gastroesophageal reflux disease) (Chronic) Gout HTN (hypertension) (Chronic) Migraine headache with aura (Acute) Ocular migraine (Acute) TIA (transient ischemic attack) Surgical History History of nasal surgery (Acute) Tonsillectomy Family History Maternal Grandmother Stroke Social History Smoking/Tobacco Use Status: Never Alcohol Intake: current Alcohol Intake frequency: 0-2 drinks per day Alcohol type: beer Drug use: Never Household members: none Visit Medication and Allergies Active Medications Generic Name Dose Route Start Last Admin Trade Name Freq PRN Reason Stop Dose Admin Acetaminophen 0 mg 08/01/19 17:48 Tylenol PO Q4H PRN PRN Al Hydrox/Mg Hydrox/Simethicone 30 ml 08/01/19 17:48 Mylanta Liquid PO Q2H PRN PRN Aspirin 81 mg 08/02/19 08:30 08/02/19 10:13 Ecotrin PO 81 mg DAILY MONI Administration Atorvastatin Calcium 80 mg 08/01/19 20:00 08/01/19 20:39 Lipitor PO 80 mg QPM MONI Administration Clopidogrel Bisulfate 75 mg 08/02/19 08:30 08/02/19 10:14 Plavix PO 75 mg DAILY MONI Administration Dimethicone/Zinc Oxide 0 gm 08/01/19 17:48 Georgie Protect Cream TP PRN PRN Docusate Sodium 100 mg 08/01/19 17:48 08/02/19 10:13 Colace PO 100 mg TID PRN PRN Administration Enoxaparin Sodium 40 mg 08/01/19 18:00 08/01/19 20:38 Lovenox SC 40 mg Q24H MONI Administration Folic Acid 1 mg 08/01/19 18:05 08/02/19 10:14 Folate PO 08/07/19 08:31 1 mg DAILY MONI Administration IV Miscellaneous Supplies 1 each 08/01/19 16:45 IV DIRECTED MONI Iohexol 100 ml 08/01/19 12:45 08/01/19 12:43 Omnipaque 350 IJ 08/31/19 23:59 85 ml DIRECTED MONI Administration Lorazepam 0 mg 08/01/19 18:03 Ativan PO/SL DIRECTED PRN Lorazepam 0 mg 08/01/19 18:03 Ativan Injection IVP DIRECTED PRN Magnesium Hydroxide 30 ml 08/01/19 17:48 Milk Of Magnesia PO DAILY PRN PRN Multivitamins 1 tab 08/01/19 18:05 08/02/19 10:14 PO 08/07/19 08:31 1 tab DAILY MONI Administration Omeprazole 20 mg 08/02/19 07:30 08/02/19 10:13 Prilosec PO 20 mg DAILY@0730 MONI Administration Polyethylene Glycol 17 gm 08/01/19 17:48 Miralax PO DAILY PRN PRN Constipation Sodium Chloride 50 ml 08/01/19 12:45 08/01/19 12:45 Saline 50 Ml Diluent Vial IV 50 ml .FOR DI USE MONI Administration Sodium Chloride 0 ml 08/01/19 16:39 Saline Flush 10 Ml Syringe IVP PRN PRN Thiamine HCl 100 mg 08/01/19 18:05 08/02/19 10:14 PO 08/07/19 08:31 100 mg DAILY MONI Administration Allergies No Known Allergies Allergy (Unverified 08/01/19 11:28) Exam Narrative Exam Narrative: Physical Exam: Gen: Patient of apparent stated age, NAD Head and face: no facial or cranial abnormalities Neck: Supple, no meningismus, no occipital tenderness CV: + S1, S2, RRR, no murmur Resp: CTA B/L Abd: soft, nontender, nondistended Ext: No edema. No clubbing or cyanosis. No bony deformity. Neuro Exam: Language: fluency, naming, repetition, and comprehension intact; Mental Status: AAOx3, current events intact, fund of knowledge intact; Speech: no dysarthria Cranial nerves: Funduscopy: not performed CN II: visual hill intact CN III, IV, : extraocular movements intact, no nystagmus, pupils symmetric and reactive to light CN V: face sensation intact to LT and PP CN VII: no facial asymmetry noted CN VIII: hearing intact bilaterally CN IX, X: palate rises symmetrically CN XI: trapezius/SCM 5/5 bilaterally CN XII: protrudes tongue symmetrically Sensory: intact to LT, PP, vibration, and joint position in all extremities Motor: bulk and tone intact. Fine motor movements intact bilaterally. No pronator drift. Strength 5/5 throughout including the deltoids, biceps, triceps, wrist extensors, hip flexors, knee flexors, knee extensors, ankle flexors, and ankle extensors. Reflexes: 2+ at the biceps, triceps, brachioradialis, patella, and achilles tendons bilaterally; toes down going bilaterally; Coordination: FTN and HTS intact bilaterally Gait: normal gait Results Last Vital Signs Temp 36.7 C 08/02/19 10:30 Pulse 71 08/02/19 10:30 Resp 13 08/02/19 10:30 BP 167/99 H 08/02/19 10:30 Pulse Ox 98 08/02/19 10:30 Labs Result diagrams: 08/01/19 11:36 08/02/19 06:25 Labs: Laboratory Results - last 24 hr 08/01/19 08/01/19 08/01/19 11:36 11:36 11:36 WBC 7.24 RBC 4.85 Hgb 16.1 Hct 45.4 MCV 93.6 MCH 33.2 H MCHC 35.5 RDW 13.3 Plt Count 244 MPV 10.6 Immature Gran % 0.1 Neutrophils % 29.4 Lymphocytes % 60.6 Monocytes % 7.3 Eosinophils % 2.5 Basophils % 0.1 Absolute Neutrophils 2.12 Absolute Lymphocytes 4.39 H Absolute Monocytes 0.53 Absolute Eosinophils 0.18 Absolute Basophils 0.01 PT 11.0 INR 1.1 APTT 24.1 Sodium 140 Potassium 3.8 Chloride 104 Carbon Dioxide 24.5 Anion Gap 11.5 H BUN 17 Creatinine 1.15 Estimated GFR/1.73 m2 >= 60.00 Glucose 108 H Hemoglobin A1c Calcium 9.0 Magnesium 1.8 Total Bilirubin 0.6 AST 26 ALT 15 L Alkaline Phosphatase 65 Troponin I < 0.05 Total Protein 6.9 Albumin 3.9 Triglycerides Total Cholesterol LDL Cholesterol, Calc HDL Cholesterol TSH Urine Opiates Screen Urine Methadone Screen Ur Barbiturates Screen Ur Tricyclics Screen Ur Amphetamines Screen U Benzodiazepines Scrn Urine Cocaine Screen Ur THC Screen COVID-19 PCR Nasopharyn COVID-19 PCR Ref Test Perform Site 08/01/19 08/02/19 08/02/19 16:35 06:25 06:25 WBC RBC Hgb Hct MCV MCH MCHC RDW Plt Count MPV Immature Gran % Neutrophils % Lymphocytes % Monocytes % Eosinophils % Basophils % Absolute Neutrophils Absolute Lymphocytes Absolute Monocytes Absolute Eosinophils Absolute Basophils PT INR APTT Sodium Potassium Chloride Carbon Dioxide Anion Gap BUN Creatinine Estimated GFR/1.73 m2 Glucose 110 H Hemoglobin A1c Calcium Magnesium Total Bilirubin AST ALT Alkaline Phosphatase Troponin I Total Protein Albumin Triglycerides 139 Total Cholesterol 167 LDL Cholesterol, Calc 96 HDL Cholesterol 44 TSH 2.13 Urine Opiates Screen Urine Methadone Screen Ur Barbiturates Screen Ur Tricyclics Screen Ur Amphetamines Screen U Benzodiazepines Scrn Urine Cocaine Screen Ur THC Screen COVID-19 PCR Negative Nasopharyn COVID-19 PCR Not Applicable Ref Test Perform Site [place] [facility] 08/02/19 08/02/19 06:25 07:18 WBC RBC Hgb Hct MCV MCH MCHC RDW Plt Count MPV Immature Gran % Neutrophils % Lymphocytes % Monocytes % Eosinophils % Basophils % Absolute Neutrophils Absolute Lymphocytes Absolute Monocytes Absolute Eosinophils Absolute Basophils PT INR APTT Sodium Potassium Chloride Carbon Dioxide Anion Gap BUN Creatinine Estimated GFR/1.73 m2 Glucose Hemoglobin A1c 5.6 Calcium Magnesium Total Bilirubin AST ALT Alkaline Phosphatase Troponin I Total Protein Albumin Triglycerides Total Cholesterol LDL Cholesterol, Calc HDL Cholesterol TSH Urine Opiates Screen Negative Urine Methadone Screen Negative Ur Barbiturates Screen Negative Ur Tricyclics Screen Negative Ur Amphetamines Screen Negative U Benzodiazepines Scrn Negative Urine Cocaine Screen Negative Ur THC Screen Negative COVID-19 PCR Nasopharyn COVID-19 PCR Ref Test Perform Site
[2019-08-02] MEDS: Normal Saline Flush 10 ML SYR IVP (14:24)
[2019-08-02 15:25] VITALS: BP 158/90; PULSE 77; RESP 14; TEMP 36.7; O2SAT 95
--- NOTE | 2019-08-02 16:09 | DSE_ITS ---
Date of service: 08/02/19 Time of Service: 16:09 DS: Diagnosis Discharge Diagnosis (1) Acute cerebrovascular accident: Status: Acute (2) Left sided lacunar infarction: Status: Acute Discharge Plan Disposition Patient Disposition: HOME Condition: Improving Discharge Details Chief Complaint: CVA/TIA Clinical Impression: Left sided lacunar infarction, Acute cerebrovascular accident Reason For Visit: ACUTE LACUNAR INFARCT Admit Date/Time: 08/01/19 16:39 Admit Provider: Mohit Grant Attending Provider: Mohit Grant Primary Care Provider: Shala Ibanez ED Provider: Sidra Phan Hospital Course Hospital Course: 74-year-old right-handed male is a non-smoker who has a past medical history of GERD as well as a previous history of TIA his only medication is [id number] omeprazole. He presented to the emergency department with complaints of acute right hand and right foot tingling along with tingling on the right side of his tongue. Symptoms began around 3 AM but he presented to the emergency department at 11:24 AM. Symptoms began while he was working on his computer late at night was getting ready to close up his computer and go to bed. He slept through the night and when his symptoms continued into the morning he presented to the emergency department. Work-up in the emergency department clued routine labs and EKG as well as a CT scan of his head and a subsequent CTA of his head and neck and subsequent MRI of the brain and MRA. CT scan of the head was with out contrast was unremarkable. CTA of the head and cervical vessels showed patent [place] and patent cervical vessels with no significant stenoses or aneurysms. MRA of the brain showed patent [place] and MRI of the brain showed a small diffusion defect in the left thalamus consistent with a stroke. Patient was started on Plavix with a bolus of 300 mg and then continued on Plavix at 75 mg orally daily. Patient already taken aspirin 325 mg at home and then was maintained on 81 mg daily. High-dose atorvastatin was added to his regimen and he was admitted overnight on telemetry for further evaluation including an echocardiogram the next morning. Routine labs including a CBC was unremarkable chemistry profile was unremarkable except for a borderline elevated glucose of 108. Repeat fasting glucose came back at 110 but his glycohemoglobin A1c was 5.6%. LFTs were within normal limits. Lipid profile was obtained demonstrated normal triglycerides of 139, total cholesterol 167 but an LDL of 96 with an HDL 44. TSH was normal at 2.13. Patient underwent a speech therapy evaluation and physical therapy evaluation and did well with both. No further services were indicated. Neurology consult was obtained with Dr. Roxi Carrington. She recommended a 30-day extended cardiac monitoring upon discharge and to continue the Plavix 75 mg daily along with aspirin 81 mg daily for 1 month at which point he could stop the Plavix and continue aspirin 81 mg daily for secondary stroke prevention. She recommended downgrading his atorvastatin to 10 mg daily given his excellent LDL control. She agreed they did not need physical therapy or occupational therapy and request to see him back in the office in 6 to 8 weeks.Echocardiogram demonstrated normal left ventricular size with no wall motion abnormalities. Transmitral Doppler flow pattern suggest impaired LV relaxation. Left ventricular ejection fraction was slightly below normal at 49%. RV was not well visualized and RV systolic function could not be assessed. RVSP was normal at 25. Left and right atrium were normal in size and there is no significant valvular abnormalities. Patient's blood pressure was labile during his hospital stay but because of the acute phase of his stroke I did not initiate antihypertensive medications. It is recommended that he follow-up with his primary care provider to monitor his blood pressure and initiate medications to maintain a systolic blood pressure below 140 and a diastolic blood pressure below 90. Home Meds and New Rx's Prescriptions: New clopidogrel [Plavix] 75 mg Tablet 75 mg PO DAILY Qty: 30 RF: 1 aspirin 81 mg Tablet,Delayed Release (Dr/Ec) 81 mg PO DAILY Qty: 0 RF: 0 atorvastatin 20 mg tablet 20 mg PO QHS Qty: 30 RF: 1 Continued omeprazole magnesium [Prilosec OTC] 20 MG tablet,delayed release (DR/EC) 20 mg PO DAILY RF: 0 No Action cephalexin [Keflex] 500 mg capsule 500 mg PO QID Qty: 27 RF: 0 Discharge Instructions Instructions: Ischemic Stroke (DC), Hypertension (DC) Additional Instructions: return your cardiac event recorder to respiratory care department after completion of monitoring for one month. follow up with your primary care provider at [facility] in the next one to two weeks. follow up with Dr. Carrington in 6 to 8 weeks Stand Alone Forms: Nursing Discharge Form Referrals: Alex Sanford [ NON-[facility] STAFF PHYSICIAN] - 08/08/19 7:45 am Roxi Carrington MD [ [facility] STAFF PHYSICIAN] - (call the office for follow up appointment in 6 to 8 weeks) Activity:: Activity as Tolerated Equipment/Supplies:: No Equipment Needed Diet:: Low-cholesterol Discharge Orders Discharge Orders: Discharge Order (Routine); Ordered 08/02/19 Ordered By: Mohit Grant Other Ambulatory Orders: Cardiac Event Recorder (Outpt) (ONCE) Timeframe: [id number] Facility: [facility] - Location: Respiratory Therapy Ordered By: Mohit Grant Discharge Data Discharge Date/Time-TO BE ENTERED AT DEPARTURE: 08/02/19 16:59 DS: Summary Status at Discharge Functional status at discharge: independent ambulation Overall status at discharge: patient is progressing back to baseline Mental Status: mental status grossly normal Speech and Movement: speech and movement normal Mood: congruent mood Affect: normal affect Exam Psych Mental Status: mental status grossly normal Speech and Movement: speech and movement normal Mood: congruent mood Affect: normal affect DS: Data Vitals/I&O Vitals and I&O: Vital Signs Temperature 36.7 C 08/02/19 15:25 Temperature Source Tympanic 08/02/19 15:25 Pulse 77 08/02/19 15:25 Pulse Rhythm Regular 08/02/19 16:00 Pulse 78 08/01/19 17:01 Respiratory Rate 14 08/02/19 15:25 Respiratory Effort Non-Labored 08/02/19 16:00 Respiratory Depth Normal 08/02/19 16:00 Respiratory Pattern Normal 08/02/19 16:00 Blood Pressure 158/90 H 08/02/19 15:25 Blood Pressure Mean 93 08/01/19 17:01 Blood Pressure Position Sitting 08/01/19 11:24 Pulse Oximetry 95 08/02/19 15:25 Oxygen Delivery Method Room Air 08/02/19 15:25 Oxygen Flow Rate 0 08/02/19 15:25 Pain Level 0 08/02/19 15:25 Intake & Output 08/01/19 08/02/19 08/02/19 23:59 11:59 23:59 Intake Total 610 / 820 210 / 820 Output Total 350 / 350 Balance 260 / 470 210 / 470 Weight 86.8 kg Intake: IV Oral 610 / 810 200 / 810 Output: Urine 350 / 350 Other: Urine Color Yellow Yellow Urine Appearance Clear Clear Clear Urine Odor Normal None Stool Size Small Stool Characteristics Soft Formed Voiding Methods Toilet Toilet Data Completed and Pending Labs on day of discharge: Labs from last 24 hours 08/02/19 08/02/19 08/02/19 07:18 06:25 06:25 Glucose 110 H Hemoglobin A1c 5.6 Triglycerides Total Cholesterol LDL Cholesterol, Calc HDL Cholesterol TSH Urine Opiates Screen Negative Urine Methadone Screen Negative Ur Barbiturates Screen Negative Ur Tricyclics Screen Negative Ur Amphetamines Screen Negative U Benzodiazepines Scrn Negative Urine Cocaine Screen Negative Ur THC Screen Negative COVID-19 PCR Nasopharyn COVID-19 PCR Ref Test Perform Site 08/02/19 08/01/19 06:25 16:35 Glucose Hemoglobin A1c Triglycerides 139 Total Cholesterol 167 LDL Cholesterol, Calc 96 HDL Cholesterol 44 TSH 2.13 Urine Opiates Screen Urine Methadone Screen Ur Barbiturates Screen Ur Tricyclics Screen Ur Amphetamines Screen U Benzodiazepines Scrn Urine Cocaine Screen Ur THC Screen COVID-19 PCR Negative Nasopharyn COVID-19 PCR Not Applicable Ref Test Perform Site [facility] Medical History CLL (chronic lymphocytic leukemia) (Acute) GERD (gastroesophageal reflux disease) (Chronic) Gout HTN (hypertension) (Chronic) Migraine headache with aura (Acute) Ocular migraine (Acute) TIA (transient ischemic attack) Surgical History History of nasal surgery (Acute) Tonsillectomy Family History Maternal Grandmother Stroke Social History Smoking/Tobacco Use Status: Never Alcohol Intake: current Alcohol Intake frequency: 0-2 drinks per day Alcohol type: beer Drug use: Never Household members: none Do you feel safe at home: Yes Do you feel safe in your relationship?: Yes
== END 2019-08-02 16:59 | disposition home or self-care (01) ==
LOC: ER 17:11 → MS 17:39
PROVIDERS: Admitting Provider Internal Medicine; Emergency Provider Physician Assistant; PCP Nurse Practitioner Family; Visit Provider Internal Medicine
DX: I63.81 Other cerebral infarction due to occlusion or stenosis of small artery (principal); I10 Essential (primary) hypertension; K21.9 Gastro-esophageal reflux disease without esophagitis; C91.10 Chronic lymphocytic leukemia of B-cell type not having achieved remission; M10.9 Gout, unspecified; Z86.73 Personal history of transient ischemic attack (TIA), and cerebral infarction without residual deficits; Z11.59 Encounter for screening for other viral diseases; G43.109 Migraine with aura, not intractable, without status migrainosus; Z79.82 Long term (current) use of aspirin
CPT/HCPCS: 70496; 70498; 70544; 80053; 80061; 80307; 82947; 93270; 93306; 97161; 99220; 99223; 99239; J1650; U0003; 70450; 70551; 71046; 83036; 83735; 84443; 84484; 85025; 85610; 85730; 99217; G0378; J2060; J3490

== ENCOUNTER → 2019-08-02 07:32 | Outpatient (BNVA) | payer OTHER, SELFPAY | PROVIDERS: PCP Nurse Practitioner Family; Referring Provider Nurse Practitioner Family; Visit Provider Psychiatry & Neurology Neurology | DX: R69 Illness, unspecified (principal) ==

== ENCOUNTER 2019-08-04 13:50 | Emergency (ER) | payer OTHER, SELFPAY ==
[2019-08-04 13:59] VITALS: BP 123/78; PULSE 92; RESP 18; TEMP 35.7; O2SAT 95
--- NOTE | 2019-08-04 15:14 | W.ED.GENAD ---
Discharge Plan Disposition Patient Disposition: HOME Condition: Stable Discharge Details Chief Complaint: Cellulitis Clinical Impression: Phlebitis of right arm Primary Care Provider: Shala Ibanez ED Provider: [place] Home Meds and New Rx's Prescriptions: New cephalexin [Keflex] 500 mg capsule 500 mg PO QID Qty: 27 RF: 0 Continued omeprazole magnesium [Prilosec OTC] 20 MG tablet,delayed release (DR/EC) 20 mg PO DAILY RF: 0 clopidogrel [Plavix] 75 mg Tablet 75 mg PO DAILY Qty: 30 RF: 1 aspirin 81 mg Tablet,Delayed Release (Dr/Ec) 81 mg PO DAILY Qty: 0 RF: 0 atorvastatin 20 mg tablet 20 mg PO QHS Qty: 30 RF: 1 Discharge Instructions Instructions: Superficial Thrombophlebitis (ED) Additional Instructions: Please take antibiotic as prescribed. Be sure to take the full course. Please take ibuprofen over the counter. Take 600mg by mouth every 6 hours for the next few days. Anti-inflammatory medication may reduce swelling and inflammation and help the condition resolve sooner. Symptomatic care includes keeping your arm elevated as much as possible and applying warm or cool compresses a few times a day. Please contact your primary care physician to arrange follow-up. Return to the ER for any worsening or new concerning symptoms. Referrals: Shala Ibanez [Primary Care Provider] - Discharge Data Discharge Date/Time-TO BE ENTERED AT DEPARTURE: 08/04/19 15:44 Medical Decision Making 74-year-old male recently discharged from the hospital a few days ago after being seen and treated for CVA, returns with right arm erythema and pain at site of prior antecubital IV. Patient is not septic appearing. Arm is tender and erythematous superficially. Suspect superficial thrombo-phlebitis. Plan to treat with warm compresses, NSAID and and will cover with Keflex. Inflammation does not improve with conservative management and progresses, patient will need ultrasound of the right upper extremity. Of note, patient had an echocardiogram here at [facility] on 08/01/2019 that did not show any valvular abnormality. No subjective fevers. Erythema border was marked. Patient was encouraged to monitor closely and follow-up with PCP. He was encouraged to return immediately should have any worsening or new concerning symptoms. He understands that should symptoms persist he may need additional diagnostic studies treatment. HPI General Mode of arrival: ambulatory. Date/Time Provider Initiated Documentation: 08/04/19 14:28. Limitations to Documentation: no limitations. Information obtained by: patient. HPI Narrative: 74-year-old male recently hospitalized for acute CVA, discharged 2 days ago, returns with chief complaint of pain and swelling right upper arm. Patient notes yesterday he had some inflammation right upper arm and antecubital fossa that has persisted and now noticed to be inflamed and red. Patient states while he was hospitalized he had an IV in his right antecubital fossa that was not placed with ultrasound. He denies associated fever. Related Data Home Medications Medication Instructions Recorded Confirmed omeprazole magnesium [Prilosec OTC] 20 mg PO DAILY 09/27/08/04/19 aspirin 81 mg PO DAILY #0 tab 08/02/19 08/04/19 atorvastatin 20 mg PO QHS #30 tab 08/02/19 08/04/19 clopidogrel [Plavix] 75 mg PO DAILY #30 tab 08/02/19 08/04/19 cephalexin [Keflex] 500 mg PO QID #27 cap 08/04/19 Previous Rx's Medication Instructions Recorded aspirin 81 mg PO DAILY #0 tab 08/02/19 atorvastatin 20 mg PO QHS #30 tab 08/02/19 clopidogrel [Plavix] 75 mg PO DAILY #30 tab 08/02/19 cephalexin [Keflex] 500 mg PO QID #27 cap 08/04/19 Allergies Allergy/AdvReac Type Severity Reaction Status Date / Time No Known Allergies Allergy Unverified 08/04/19 14:31 General Stated Complaint: Cellulitis ANAM: 4 Review of Systems Constitutional Constitutional: Denies fever(s) Integumentary/Breasts Skin/Breast: Reports rash (Right upper arm) Neurologic Comments: Tingling in right hand and right face intermittently [facility] Social History Smoking/Tobacco Use Status: Never Alcohol Intake: current Alcohol Intake frequency: 0-2 drinks per day Alcohol type: beer Drug use: Never Household members: none Do you feel safe at home: Yes Do you feel safe in your relationship?: Yes Exam Const General: cooperative and no acute distress Cardio Rate: regular rate and not tachycardic Rhythm: regular rhythm Skin General skin exam: no rashes or lesions noted Neuro General: patient alert, patient awake and tone normal Extrem Other: Right upper extremity: Swelling of right antecubital fossa with circular area of erythema and tenderness on his upper arm anteriorly just proximal to antecubital fossa that is warm to the touch Course Vital Signs Vital signs: Vital Signs Pulse 92 H 08/04/19 13:59 Respiratory Rate 18 08/04/19 13:59 Blood Pressure 123/78 08/04/19 13:59 Pulse Oximetry 95 08/04/19 13:59 Pulse 92 H 08/04/19 13:59 Respiratory Rate 18 08/04/19 13:59 Respiratory Effort Non-Labored 08/04/19 14:32 Blood Pressure 123/78 08/04/19 13:59 Blood Pressure Position Sitting 08/04/19 13:59 Pulse Oximetry 95 08/04/19 13:59 Oxygen Delivery Method Room Air 08/04/19 13:59 Oxygen Flow Rate 0 08/04/19 13:59
[2019-08-04] MEDS: Cephalexin 500 MG CAP PO (15:41)
--- NOTE | 2019-09-03 08:48 | W.CARDEVENT ---
Date of service: 09/03/19 Time of Service: 08:48 Cardiac Event Recorder Cardiac Event Note: There is a 30-day event monitor ordered for indication of cerebral infarction. ?Patient was in normal sinus rhythm for the majority of the recording with an average heart rate of 77 bpm. ?There were 5 automatically triggered events which were associated with sinus rhythm, PVCs as well as a 4 beat run of NSVT ?There were no manually triggered events. ?There were no episodes of atrial fibrillation, no pauses greater than 3 seconds
== END 2019-08-04 15:44 | disposition home or self-care (01) ==
PROVIDERS: Emergency Provider Student in an Organized Health Care Education/Training Program; PCP Nurse Practitioner Family
DX: I80.8 Phlebitis and thrombophlebitis of other sites (principal); Y84.8 Other medical procedures as the cause of abnormal reaction of the patient, or of later complication, without mention of misadventure at the time of the procedure
CPT/HCPCS: 99283

== ENCOUNTER 2019-09-03 | Outpatient (CLI) | payer OTHER, SELFPAY | END 2019-09-03 00:20 | PROVIDERS: PCP Nurse Practitioner Family; Referring Provider Nurse Practitioner Family; Visit Provider Internal Medicine Cardiovascular Disease | DX: I63.9 Cerebral infarction, unspecified (principal); I49.3 Ventricular premature depolarization; I47.2 Ventricular tachycardia | CPT/HCPCS: 93272 ==

== ENCOUNTER → 2019-09-25 12:04 | Outpatient (BNVA) | payer OTHER, SELFPAY | PROVIDERS: PCP Nurse Practitioner Family; Referring Provider Nurse Practitioner Family; Visit Provider Psychiatry & Neurology Neurology | DX: I69.398 Other sequelae of cerebral infarction (principal); R20.0 Anesthesia of skin; I10 Essential (primary) hypertension | CPT/HCPCS: 99215 ==

== ENCOUNTER 2020-01-31 15:49 | Outpatient (REF) | payer OTHER, SELFPAY ==
[2020-01-31 14:05] LABS: ALT 18 U/L (16-63); AST 28 U/L (15-37); Albumin 4.1 g/dL (3.4-5.0); Alkaline Phosphatase 78 U/L (46-116); Anion Gap 10.2 mmol/L (3-11); BUN 16 mg/dL (7-18); Bilirubin, Total 0.9 mg/dL (0.2-1.0); CO2 26.8 mmol/L (21.0-32.0); CREATININE 1.17 mg/dL (0.70-1.30); Chloride 105 mmol/L (98-107); Glucose 100 mg/dL (74-106); Potassium 4.5 mmol/L (3.5-5.1); Sodium 142 mmol/L (136-145); Total Protein 6.7 g/dL (6.4-8.2)
[2020-01-31 14:25] LABS: Calculated LDL 51 mg/dL (<100); Cholesterol 134 mg/dL (<200); HDL Cholesterol 55 mg/dL (40-60); Triglyceride 144 mg/dL (<150)
[2020-01-31 14:44] LABS: Hemoglobin A1C 5.3 % (<5.7)
== END 2020-01-31 16:09 ==
LOC: NCHCN 15:49
PROVIDERS: PCP Nurse Practitioner Family; Visit Provider Physician Assistant
DX: R73.03 Prediabetes (principal); L57.0 Actinic keratosis; I63.9 Cerebral infarction, unspecified
CPT/HCPCS: 80053; 80061; 83036

== ENCOUNTER 2021-01-28 14:42 | Outpatient (REF) | payer MEDICARE, SELFPAY ==
[2021-01-28 19:17] LABS: HCT 47.2 % (40.0-50.0); HGB 15.9 g/dL (13.5-17.5); MCH 32.6 pg (27.0-33.0); MCHC 33.7 % (32.0-36.0); MCV 96.7 fL (80-95); MPV 10.9 fL (8.0-11.0); Platelet Count 242 10^3/uL (130-400); RBC 4.88 10^6/uL (4.36-5.78); RDW-SD 46.5 fL; WBC 8.41 10^3/uL (4.4-10.8)
[2021-01-28 19:38] LABS: Hemoglobin A1C 5.7 % (<5.7)
[2021-01-28 19:39] LABS: ALT 22 U/L (16-63); AST 32 U/L (15-37); Albumin 3.9 g/dL (3.4-5.0); Alkaline Phosphatase 71 U/L (46-116); Anion Gap 9.5 mmol/L (3-11); BUN 15 mg/dL (7-18); Bilirubin, Total 0.5 mg/dL (0.2-1.0); CO2 28.5 mmol/L (21.0-32.0); CREATININE 1.1 mg/dL (0.70-1.30); Calcium 9.2 mg/dL (8.5-10.1); Calculated LDL 72 mg/dL (<100); Chloride 105 mmol/L (98-107); Cholesterol 146 mg/dL (<200); Glucose 90 mg/dL (74-106); HDL Cholesterol 59 mg/dL (40-60); Potassium 4.5 mmol/L (3.5-5.1); Sodium 143 mmol/L (136-145); Total Protein 6.6 g/dL (6.4-8.2); Triglyceride 77 mg/dL (<150)
== END 2021-01-28 14:43 | disposition home or self-care (01) ==
LOC: NCHCN 14:42
PROVIDERS: PCP Nurse Practitioner Family; Visit Provider Physician Assistant
DX: R73.03 Prediabetes (principal); C91.10 Chronic lymphocytic leukemia of B-cell type not having achieved remission; K21.9 Gastro-esophageal reflux disease without esophagitis; I63.9 Cerebral infarction, unspecified; I10 Essential (primary) hypertension
CPT/HCPCS: 80053; 80061; 85027; 83036

== ENCOUNTER 2022-02-16 14:08 | Outpatient (REF) | payer MEDICARE, SELFPAY ==
[2022-02-16 18:27] LABS: HCT 46.1 % (40.0-50.0); HGB 15.7 g/dL (13.5-17.5); MCH 32.7 pg (27.0-33.0); MCHC 34.1 % (32.0-36.0); MCV 96 fL (80-95); MPV 10.9 fL (8.0-11.0); Platelet Count 234 10^3/uL (130-400); RDW 12.5 % (11.8-14.1); RDW-SD 44.6 fL; WBC 9.69 10^3/uL (4.4-10.8)
[2022-02-16 18:43] LABS: Anion Gap 10.5 mmol/L (3-11); BUN 19 mg/dL (7-18); CO2 28.5 mmol/L (21.0-32.0); CREATININE 1.1 mg/dL (0.70-1.30); Calculated LDL 52 mg/dL (<100); Chloride 103 mmol/L (98-107); Cholesterol 141 mg/dL (<200); Estimated GFR 69.14 (mL/min/1.73m2); Glucose 103 mg/dL (74-106); HDL Cholesterol 61 mg/dL (40-60); Potassium 3.9 mmol/L (3.5-5.1); Sodium 142 mmol/L (136-145); Triglyceride 143 mg/dL (<150)
[2022-02-16 19:48] LABS: Hemoglobin A1C 5.4 % (<5.7)
== END 2022-02-16 14:09 | disposition home or self-care (01) ==
LOC: NCHCN 14:08
PROVIDERS: PCP Nurse Practitioner Family; Visit Provider Physician Assistant
DX: I63.9 Cerebral infarction, unspecified (principal); R73.03 Prediabetes; K21.9 Gastro-esophageal reflux disease without esophagitis; L57.0 Actinic keratosis
CPT/HCPCS: 80048; 80061; 85027; 83036

== ENCOUNTER 2023-02-21 15:51 | Outpatient (REF) | payer MEDICARE, SELFPAY ==
[2023-02-21 19:29] LABS: HCT 47.4 % (40.0-50.0); MCH 32.9 pg (27.0-33.0); MCHC 33.8 % (32.0-36.0); MCV 97 fL (80-95); MPV 10.9 fL (8.0-11.0); Platelet Count 262 10^3/uL (130-400); RBC 4.87 10^6/uL (4.36-5.78); RDW 12.8 % (11.8-14.1); RDW-SD 46.1 fL; WBC 9.19 10^3/uL (4.4-10.8)
[2023-02-21 19:46] LABS: Hemoglobin A1C 5.4 % (<5.7)
[2023-02-21 19:58] LABS: ALT 15 U/L (16-63); AST 21 U/L (15-37); Albumin 3.7 g/dL (3.4-5.0); Alkaline Phosphatase 56 U/L (46-116); Anion Gap 6.1 mmol/L (3-11); BUN 18 mg/dL (7-18); Bilirubin, Total 0.8 mg/dL (0.2-1.0); CO2 29.9 mmol/L (21.0-32.0); Calcium 9.2 mg/dL (8.5-10.1); Calculated LDL 72 mg/dL (<100); Chloride 105 mmol/L (98-107); Cholesterol 151 mg/dL (<200); Estimated GFR 77.04 (mL/min/1.73m2); Glucose 103 mg/dL (74-106); HDL Cholesterol 68 mg/dL (40-60); Potassium 4.7 mmol/L (3.5-5.1); Sodium 141 mmol/L (136-145); Total Protein 6.1 g/dL (6.4-8.2); Triglyceride 58 mg/dL (<150)
== END 2023-02-21 15:52 | disposition home or self-care (01) ==
LOC: NCHCN 15:51
PROVIDERS: PCP Physician Assistant; Visit Provider Physician Assistant
DX: I63.9 Cerebral infarction, unspecified (principal); R73.03 Prediabetes; C91.10 Chronic lymphocytic leukemia of B-cell type not having achieved remission
CPT/HCPCS: 80053; 80061; 85027; 83036

== ENCOUNTER 2024-05-03 15:09 | Outpatient (REF) | payer MEDICARE, SELFPAY ==
[2024-05-03 15:18] LABS: HCT 43.8 % (40.0-50.0); HGB 15.1 g/dL (13.5-17.5); MCH 33.3 pg (27.0-33.0); MCHC 34.5 % (32.0-36.0); MCV 97 fL (80-95); MPV 10.5 fL (8.0-11.0); Platelet Count 280 10^3/uL (130-400); RBC 4.54 10^6/uL (4.36-5.78); RDW 13.2 % (11.8-14.1); RDW-SD 46.8 fL; WBC 13.07 10^3/uL (4.4-10.8)
[2024-05-03 16:03] LABS: ALT 16 U/L (16-63); AST 25 U/L (15-37); Albumin 3.9 g/dL (3.4-5.0); Alkaline Phosphatase 71 U/L (46-116); Anion Gap 8.8 mmol/L (3-11); BUN 12 mg/dL (7-18); Bilirubin, Total 0.6 mg/dL (0.2-1.0); CO2 27.2 mmol/L (21.0-32.0); Calcium 9.2 mg/dL (8.5-10.1); Calculated LDL 43 mg/dL (<100); Chloride 106 mmol/L (98-107); Cholesterol 125 mg/dL (<200); Estimated GFR 76.56 (mL/min/1.73m2); Glucose 103 mg/dL (74-106); HDL Cholesterol 69 mg/dL (>or=40); Potassium 4.9 mmol/L (3.5-5.1); Sodium 142 mmol/L (136-145); Total Protein 6.3 g/dL (6.4-8.2); Triglyceride 68 mg/dL (<150)
== END 2024-05-03 15:10 | disposition home or self-care (01) ==
LOC: NCHCN 15:09
PROVIDERS: PCP Physician Assistant; Visit Provider Physician Assistant
DX: I10 Essential (primary) hypertension (principal); C91.10 Chronic lymphocytic leukemia of B-cell type not having achieved remission
CPT/HCPCS: 80053; 80061; 85027

== ENCOUNTER 2024-11-01 18:23 | Outpatient (REF) | payer MEDICARE, SELFPAY ==
--- NOTE | 2024-11-01 16:40 | SKI_PTH ---
PATIENT: Misha Goel LOC: N U#:[id number] AGE/SX: 79/M ROOM: RE11/01/[address]: Alex Sanford : 1945 BED: DIS: 11/01/2024 SPEC #: [id number] RECD: 11/02/24 12:07 STATUS: KOBI SONI #: [id number] MIRZA: 11/01/24 16:[address]: Alex Sanford DEPT: Surgical Specimen RECD BY: Tesha Yu Tissues: 1 - SKIN BIOPSY(SHAVE/PUNCH) Procedures: SKIN LEVEL 4 Comments: [id number]
== END 2024-11-01 18:24 | disposition home or self-care (01) ==
LOC: LBN 18:23
PROVIDERS: PCP Physician Assistant; Visit Provider Physician Assistant
DX: L57.0 Actinic keratosis (principal)
CPT/HCPCS: 88305